=== PATIENT | male | born 1960 | race Two or more races ===

== ENCOUNTER 2018-07-07 17:04 | Emergency (ER) | payer MEDICAID ==
[2018-07-07 17:17] VITALS: BP 139/89; PULSE 87; RESP 17; TEMP 98.2; O2SAT 97
[2018-07-07] MEDS ORDERED: Ciprofloxacin 0.3% OPTH SOLN OS STA (17:35)
--- NOTE | 2018-07-07 17:38 | C.PDOC ---
History Of Present Illness 57 y/o male presents to ED for evaluation of left eye pain, redness, and tearing since yesterday. Pt reports foreign body sensation in his left eye. Pt does not recall any injury. Otherwise, denies visual changes, eyelid inflammation, headache, dizziness, fever, or any other associated symptoms at this time. Time Seen by Provider: 07/07/18 17:23 Chief Complaint (Nursing): Eye Problem History Per: Patient History/Exam Limitations: no limitations Onset/Duration Of Symptoms: Days Current Symptoms Are (Timing): Still Present Associated Symptoms: Pain, FB Sensation. denies: Decreased Vision, Swelling, Discharge From Eye Recent travel outside of the [place]: No Additional History Per: Patient Past Medical History Reviewed: Historical Data, Nursing Documentation, Vital Signs Vital Signs: Last Vital Signs Temp 98.2 F 07/07/18 17:14 Pulse 87 07/07/18 17:14 Resp 17 07/07/18 17:14 BP 139/89 07/07/18 17:14 Pulse Ox 97 07/07/18 19:58 - Medical History PMH: COPD Family History: States: Unknown Family Hx - Social History Hx Alcohol Use: No Hx Substance Use: No Review Of Systems Except As Marked, All Systems Reviewed And Found Negative. Constitutional: Negative for: Fever, Chills Eyes: Positive for: Pain (left), Redness. Negative for: Vision Change, Eyelid Inflammation Neurological: Negative for: Headache, Dizziness Physical Exam - Physical Exam Appears: Non-toxic, No Acute Distress Skin: Normal Color, Warm, Dry Head: Atraumatic, Normacephalic Eye(s): bilateral: PERRL, EOMI, right: Normal Inspection, left: Other (mild injected conjuctiva, large ellipse shaped corneal abrasion from 10'o clock to 2' o clock position seen under wood's lamp) Oral Mucosa: Moist Neck: Normal ROM, Supple Extremity: Normal ROM Neurological/Psych: Oriented x3, Normal Speech ED Course And Treatment O2 Sat by Pulse Oximetry: 97 Progress Note: Pt was treated with Ciprofloxacin eye drops. Patient is being discharged home with instructions to follow up with opthomologist in 1-2 days. Disposition - Disposition Referrals: Yang Hastings MD [Staff Provider] - Disposition: HOME/ ROUTINE Disposition Time: 17:35 Condition: STABLE Additional Instructions: Follow up with Transit Department Clerk within 1-2 days. Return to ED if feel worse. Prescriptions: Ciprofloxacin 0.3% [Ciloxan 0.3% Ophth SOLN] 1 drop OS Q2 #1 bottle Erythromycin 0.5% [Erythromycin] 1 applic OS QPM #1 tube Instructions: Corneal Abrasion (DC) Forms: [employer] (Serbian) - Clinical Impression Clinical Impression: Corneal abrasion - PA / [employer] / Resident Statement MD/DO has reviewed & agrees with the documentation as recorded. - Scribe Statement The provider has reviewed the documentation as recorded by the Scribe KP All medical record entries made by the Scribe were at my direction and personally dictated by me. I have reviewed the chart and agree that the record accurately reflects my personal performance of the history, physical exam, medical decision making, and the department course for this patient. I have also personally directed, reviewed, and agree with the discharge instructions and disposition.
== END 2018-07-07 18:13 | disposition home or self-care (01) ==
LOC: C.ER 17:04
DX: S05.02XA Injury of conjunctiva and corneal abrasion without foreign body, left eye, initial encounter (principal); X58.XXXA Exposure to other specified factors, initial encounter